=== PATIENT | female | born 1955 | race Caucasian/White ===

== ENCOUNTER 2019-09-19 12:42 | Outpatient (CLI) | payer MEDICARE, OTHER, MEDICAID, SELFPAY ==
--- NOTE | 2019-09-23 17:16 | ONC FU_ITS ---
Dr. Ashby Patient Follow-Up Note Patient: Tiarra Iniguez Unit #: [id number]: 1955 Dicatated By: Pierre Ashby M.D.Date of Visit:Sep 19, 2019 Onc Med Follow-up/Prog Note Chief Complaint: Adenocarcinoma of the endocervix. History of Present Illness: This is a 63 year-old woman with adenocarcinoma of the endocervix, stage IIIB (T1b, N1, M0). She had presented with two year history of abnormal vaginal bleeding and abnormal pap smear. The biopsy revealed an adenocarcinoma of endocervix. The staging CT of the abdomen and pelvis showed thickened endocervical canal and endometrium. She had a right adnexal mass measuring 4.6 cm., radiographically compatible with a dermoid cyst. Her staging chest x-ray was unremarkable. She was taken to OR on 06/08/[address] Camarillo. Intraoperatively, she had grossly abnormal left pelvic node. Complete surgical resection was aborted, and instead bilateral oophorectomy, appendectomy, and lymphadenectomy were performed. Seven out of twelve lymph nodes were involved with metastatic moderately differentiated adenocarcinoma. She had a right ovarian mature cystic teratoma. Her PET/CT on 06/23/2013 showed no evidence of distant metastatic disease. Concurrent pelvic irradiation and chemotherapy with weekly cisplatin was initiated on 07/10/2013. Week 3 was missed, as the patient as the patient underwent the interim low-dose brachytherapy in [place], [place]. She was able to tolerate and completed a total of 6 weekly treatments with cisplatin, last treatment on 08/21/2013. She has no significant side effects. She then underwent a second low dose brachytherapy. Adjuvant consolidation chemotherapy with carboplatin AUC of 5 and paclitaxel 175 mg/m??? began on 09/19/2013, complicated with grade 4 neutropenia without fevers or infection and thrombocytopenia. CT abdomen/pelvis on 10/13/2013 showed with very good response to therapy. Her treatment was further reduced to Carboplatin AUC 4 and Paclitaxel 135 mg/m2 due to persistent thrombocytopenia. She was able to receive a total of 4 cycles of maintenance therapy, cycle 4 on 11/30/2013. The PET/CT on 01/13/2014 was equivocal. There was a new development of small, subcentimeter lymph nodes in the portacaval station, right paratracheal, and right supraclavicular areas with FDG uptake to 4.[address] of the abdomen and pelvis on 05/01/2014 showed no evidence of recurrence. There was a subtle distal colon thickening, thought to be radiation induced. CT of the abdomen and pelvis on 10/16/2014 showed no evidence of recurrent disease. CT of the abdomen and pelvis on 02/06/2015 showed no evidence of metastatic disease, although there was suspected insufficiency fracture in the right sacral wing. Restaging CT of the abdomen and pelvis was performed in February [address] Camarillo reportedly showed no recurrence. INTERIM HISTORY: CT scans of the chest, abdomen, and pelvis on 09/08/2016 showed stable non-enlarged and previously FDG avid right supraclavicular, right paratracheal, subcarinal and right hilar lymph nodes. There were no new areas of adenopathy. Fatty infiltration of the pancreas appeared similar to 10/16/2014. Fatty infiltration of the liver appeared increased from the prior exam. There was no evidence of a neoplastic process of the abdomen or pelvis. Her repeat CT scans on 09/16/2017 showed stable right supraclavicular, right superior paratracheal, subcarinal, and right hilar subcentimeter lymph nodes. These were previously FDG negative by PET. There was no new lymphadenopathy. There was no evidence of disease recurrence/progression in the chest, abdomen, or pelvis. Surveillance CT scans of the chest, abdomen, and pelvis on 09/22/2018 showed a new left upper lobe apical sub-pleural opacity measuring 6 mm. The appearance was nonspecific, but neoplastic process was not excluded. Subcentimeter lymph nodes appeared stable. There was no evidence of recurrent or metastatic disease in the abdomen and pelvis. She continued observation/expectant management. A repeat chest CT on 03/28/2019 showed stable left apical noncalcified pulmonary opacity measuring 6 mm. There were no other suspicious findings. She is seen for a follow up visit. She has been feeling pretty good generally. She says her energy and activity tolerance have improved somewhat with water aerobics. She says she still gets tired by noon. ECOG score is 1. She has good appetite. Her weight is been stable. She has no fever or night sweats. About a week ago she caught a cold. Her cough is better now, but she still has some hoarseness. She has no shortness of breath or chest pain. She is not having as much nausea now. Her diarrhea got better when she stopped taking pantoprazole. She has just a little bit of heartburn. She says her urine has looked darker. She has no other complaints. She says her joints are doing pretty good. She has been wearing compression stockings and that has been helping with her muscle cramps. She also is taking ropinirole at bedtime. She has numbness/tingling in her feet. Medications: Biotin 1 Capsule (of 80979 mcg) Oral daily, Flonase 2 Suspension Nasal daily PRN, Lisinopril 1 (10 mg) Tablet Oral daily, rOPINIRole HCl 1 Tablet (of 0.25 mg) Oral daily Allergies: NKA Review of Systems: Constitutional - She has not been feeling as tired since she has been doing water aerobics. She does light work. Her appetite is good and her weight is stable. She has no fever, night sweats, or hot flashes. ECOG score is 1, ENMT - She has sinus congestion/drainage. No mouth sores. No sore throat or difficulty swallowing. For the past week she has had some hoarseness, Hematologic/Lymphatic - She bruises easily, Respiratory - No shortness of breath. She has cough productive of pale yellow sputum. No pleuritic pain or hemoptysis, Cardiovascular - No angina pain. No palpitations, Gastrointestinal - She has nausea after eating. She has just a little bit of heartburn. Her diarrhea improved when she stopped Protonix. No blood in the stool or black stools, Genitourinary (F) - Recently her urine has looked darker. No dysuria or hematuria. No urinary frequency. No urgency or incontinence, Musculoskeletal - She is not having much joint pain. She says that compression stockings are helping her muscle cramps. She also is taking ropinirole at bedtime, Integumentary - No skin complications, Neurologic - No headache or dizziness.. She has neuropathy in her feet, Psychiatric - She sometimes has trouble getting back to sleep at night after using the bathroom. No anxiety or depression. Vital Signs: Performed on Sep 19, 2019 13:23 Height - 63.00 in Weight - 238.8 lbs (LOW) BSA - 2.09 sq.m BMI - 42.30 (HIGH) Temperature - 98.2 F (LOW) Pulse - 95 /min Respiration - 24 /min BP - 160/80 mm(hg) (HIGH) O2 Sat - 99 % Pain - 0 Physical Examination: Constitutional - She looks good generally, Eyes - Sclerae nonicteric. Conjunctivae clear, ENMT - No lesions noted in the oral cavity, Hematologic/Lymphatic - No cervical, clavicular, or axillary adenopathy, Respiratory - Lungs are clear with good air movement bilaterally, Cardiovascular - Heart rhythm is regular. There is a II/ systolic murmur. There is no gallop or rub noted, Abdomen - Moderately distended. Liver and spleen are not enlarged. There is no abdominal mass or ascites noted and there is no inguinal adenopathy, Extremities - Mild lower extremity edema, worse on the left, Neurologic - No focal neurologic deficits noted. Lab/Imaging: Test performed on Aug 01, 2019 10:55 TSH 3.160 uU/mL Amylase 104 Units/L Glucose 101 mg/dL BUN 18 mg/dL Creatinine 1.13 mg/dL Cr Clearance (Est) 84.44 mL/min BUN/Creatinine Ratio 16 Absolute Value Sodium 141 mmol/L Potassium 5.1 mmol/L Chloride 104 mmol/L CO2 23 mmol/L Calcium 9.4 mg/dL Protein, Total 6.4 g/dL Albumin 3.9 g/dL Globulin 2.5 g/dL A/G Ratio 1.6 Absolute Value Bilirubin, Total 0.2 mg/dL Alkaline Phosphatase 94 IU/L AST (SGOT) 23 IU/L ALT (SGPT) 17 IU/L WBC 5.8 10^9/L RBC 4.27 10^12/L HGB 13.0 g/dL HCT 37.5 % MCV 88 fl MCH 30.4 pg MCHC 34.7 g/dL RDW 12.1 % Platelet Count 261 10^9/L Neutrophils (Gran) 4.2 10^9/L Lymphocytes 0.9 10^9/L Monocytes 0.5 10^9/L Eosinophils 0.1 10^9/L Basophils 0.1 10^9/L Manual Lymphocytes 15 % Manual Monocytes 9 % Manual Eosinophils 2 % Manual Basophils 1 % Impression: 1. Patient with adenocarcinoma of the endocervix, stage IIIB (T1b, N1, M0). Her initial surgery on 06/08/2013 was limited to bilateral oophorectomy, appendectomy, and lymphadenectomy. Pathology metastatic moderately differentiated adenocarcinoma involving 7 out of 12 lymph nodes. The right ovary showed mature cystic teratoma. 2. She then underwent concurrent pelvic radiation with weekly cisplatin chemotherapy, initiated on 07/10/2013 and completed on 08/21/2013. 3. She received 2 doses of low dose brachytherapy, one apparently given during and one given following completion of the chemotherapy. 4. She received adjuvant consolidation chemotherapy with 4 cycles of carboplatin/paclitaxel, completed in November 2013. She has since then been followed on observation/expectant management. During followup she had some equivocal findings on follow-up PET/CT scans, but as of September 2017 there was no evidence of disease progression on her surveillance CT scans. Her followup CT scans of the chest, abdomen and pelvis on 09/22/2018 showed a new left upper lobe apical subpleural parenchymal opacity measuring 6 mm. The appearance was nonspecific, but neoplastic process was not excluded. On her repeat chest CT on 03/28/2019 the left apical nodule appeared stable. There were no other suspicious findings. During follow-up she has continued to have some fatigue, but that has improved somewhat with water aerobics and other exercise. She had been having diarrhea, that improved after she stopped taking pantoprazole and started using probiotics on a regular basis. She continues to have postprandial nausea. Overall, she appears to be doing well clinically with no evidence of recurrence of the cervical cancer. Plan: She remains on observation/expectant management. She will be scheduled for a chest CT scan for follow-up of of the pulmonary nodule. I also will schedule a HIDA scan for evaluation of her postprandial nausea. She will have further evaluation as indicated. Signed By: Pierre Ashby M.D. <<Signature on File>>
== END 2019-09-19 12:43 | disposition home or self-care (01) ==
LOC: ONCMED 12:47
PROVIDERS: Family Provider Family Medicine; Visit Provider Internal Medicine Medical Oncology
DX: Z08 Encounter for follow-up examination after completed treatment for malignant neoplasm (principal); Z85.41 Personal history of malignant neoplasm of cervix uteri; R91.1 Solitary pulmonary nodule; R11.0 Nausea; Z92.21 Personal history of antineoplastic chemotherapy; Z92.3 Personal history of irradiation
CPT/HCPCS: 99214

== ENCOUNTER 2019-10-05 08:46 | Outpatient (CLI) | payer MEDICARE, OTHER, MEDICAID, SELFPAY ==
--- NOTE | 2019-10-05 08:59 | CT_ITS ---
WS: [id number] CT CHEST TECHNIQUE: Noncontrast CT of the chest with coronal and sagittal reformatted images. CLINICAL INFORMATION: CERVICAL CANCER/PULMONARY NODULE COMPARISON: March 28, 2019 DLP: 855.[address] scans at [facility] use at least one of these dose optimization techniques: automat ed exposure control; mA and/or kV adjustment per patient size (includes targeted exams where dose is matched to clinical indication); or iterative reconstruction. FINDINGS: Again seen is the 6 mm noncalcified subpleural opacity in the left lung apex dorsally and medially. T his is unchanged since September 22, 2018. No other suspicious pulmonary parenchymal opacities. Calcified granuloma right upper lobe. Previously described right supraclavicular and right tracheoesophageal groove lymph nodes are unchang ed. Splenic granulomas. Normal adrenal glands. Small splenule. A few calcified paratracheal lymph nod es. Thoracic curve with kyphosis. Ankylosis thoracic spine. No mediastinal or hilar lymphadenopathy. No axillary lymphadenopathy. No other significant changes fr om previous. CT/CT chest wo con [id number] IMPRESSION: 1. Stable 6 mm left apical subpleural noncalcified pulmonary opacity. Recommen d 12 month follow-up. 2. No other suspicious pulmonary parenchymal abnormalities. 3. No mediastinal or hilar lymphadenopathy.
== END 2019-10-05 08:47 | disposition home or self-care (01) ==
LOC: RAD 08:46
PROVIDERS: Family Provider Family Medicine; Visit Provider Internal Medicine Medical Oncology
DX: Z85.41 Personal history of malignant neoplasm of cervix uteri (principal); C53.0 Malignant neoplasm of endocervix; R91.1 Solitary pulmonary nodule
CPT/HCPCS: 71250

== ENCOUNTER 2019-10-24 09:19 | Outpatient (CLI) | payer MEDICARE, OTHER, MEDICAID, SELFPAY ==
--- NOTE | 2019-10-24 09:24 | NM_ITS ---
WS: [id number] NUCLEAR MEDICINE HIDA SCAN WITH GALLBLADDER EJECTION FRACTION HISTORY: ABDOMINAL PAIN/NAUSEA/DIARRHEA COMPARISON: None available. TECHNIQUE: The patient was intravenously injected with 8.4 mCi of TC99m Mebrofenin. Immediate imaging over the right upper quadrant was followed by 5 minute image and additional images for a total of 60 minutes. Normal uptake of radiotracer throughout the liver. Activity identified in the gallbladder at 15 minutes and well distended by 60 minutes. Activity in the proximal small bowel was seen by 50 minutes. Good washout of the radiotracer from the liver by 60 minutes. The patient then drank 8 ounces of Ensure Plus. Ejection fraction at 60 minutes was 93%. Normal GB ej ection fraction is 35-75%. Post fatty meal symptoms: None. NM/NM hepatobiliary w phar* [id number] IMPRESSION: 1. Normal HIDA scan. 2. Normal gallbladder ejection fraction.
== END 2019-10-24 09:20 | disposition home or self-care (01) ==
LOC: NM 09:20
PROVIDERS: Family Provider Family Medicine; PCP Family Medicine; Visit Provider Internal Medicine Medical Oncology
DX: R10.9 Unspecified abdominal pain (principal); R11.0 Nausea; R11.10 Vomiting, unspecified
CPT/HCPCS: 78227; A9537

== ENCOUNTER 2020-03-21 10:52 | Outpatient (CLI) | payer MEDICARE, OTHER, MEDICAID, SELFPAY ==
[2020-03-21 11:29] LABS: Basophils # 0.1 10^3/uL (0.0-0.1); Basophils % 1.8 %; Eosinophils # 0.2 10^3/uL (0.0-0.8); Eosinophils % 3.2 %; Hematocrit 40.9 % (37.0-47.0); Hemoglobin 13.1 g/dL (11.5-15.3); Lymphocytes % 17.1 %; Mean Corpuscular Hemoglobin 29.7 pg (28.0-34.0); Mean Corpuscular Volume 92.7 fL (81-99); Mean Platelet Volume 10.1 fL (7.4-10.4); Monocytes # 0.6 10^3/uL (0.2-0.9); Monocytes % 10.6 %; Neutrophils # 3.78 10^3/uL (1.8-7.7); Neutrophils % 66.8 %; Nucleated Red Blood Cells % 0 %; Platelet Count 282 10^3/cmm (130-400); Red Blood Count 4.41 10^6/uL (4.1-5.3); Red Cell Distribution Width 12.4 % (12.1-15.1); White Blood Count 5.7 10^3/uL (4.0-10.0)
[2020-03-21 11:39] LABS: Alanine Aminotransferase 14 U/L (0-33); Albumin Level 4.1 g/dL (3.5-5.2); Alkaline Phosphatase 110 IU/L (35-105); Anion Gap 12.4 (5-19); Aspartate Amino Transferase 12 U/L (0-32); Blood Urea Nitrogen 20 mg/dL (8-23); Calcium 8.7 mg/dL (8.5-10.5); Carbon Dioxide 26 mmol/L (22-29); Chloride 102 mmol/L (98-107); Globulin 3.3 g/dL (1.3-4.6); Glomerular Filtration Rate 49.7 mL/min (90-130); Glucose 88 mg/dL (65-115); Osmolality Calculated 278 mOsm/kg (285-295); Potassium 4.4 mmol/L (3.5-5.1); Sodium 136 mmol/L (136-145); Total Bilirubin 0.3 mg/dL (0.15-1.2); Total Protein 7.4 g/dL (6.6-8.7)
--- NOTE | 2020-03-24 15:47 | ONC FU_ITS ---
Dr. Ashby Patient Follow-Up Note Patient: Tiarra Iniguez Unit #: [id number]: [id number] Dicatated By: Pierre Ashby M.D.Date of Visit:Mar 21, 2020 Onc Med Follow-up/Prog Note Chief Complaint: Adenocarcinoma of the endocervix. History of Present Illness: This is a 64 year-old woman with adenocarcinoma of the endocervix, stage IIIB (T1b, N1, M0). She had presented with two year history of abnormal vaginal bleeding and abnormal pap smear. The biopsy revealed an adenocarcinoma of endocervix. The staging CT of the abdomen and pelvis showed thickened endocervical canal and endometrium. She had a right adnexal mass measuring 4.6 cm., radiographically compatible with a dermoid cyst. Her staging chest x-ray was unremarkable. She was taken to OR on 06/08/[address] Camarillo. Intraoperatively, she had grossly abnormal left pelvic node. Complete surgical resection was aborted, and instead bilateral oophorectomy, appendectomy, and lymphadenectomy were performed. Seven out of twelve lymph nodes were involved with metastatic moderately differentiated adenocarcinoma. She had a right ovarian mature cystic teratoma. Her PET/CT on 06/23/2013 showed no evidence of distant metastatic disease. Concurrent pelvic irradiation and chemotherapy with weekly cisplatin was initiated on 07/10/2013. Week 3 was missed, as the patient as the patient underwent the interim low-dose brachytherapy in [place], [place]. She was able to tolerate and completed a total of 6 weekly treatments with cisplatin, last treatment on 08/21/2013. She has no significant side effects. She then underwent a second low dose brachytherapy. Adjuvant consolidation chemotherapy with carboplatin AUC of 5 and paclitaxel 175 mg/m??? began on 09/19/2013, complicated with grade 4 neutropenia without fevers or infection and thrombocytopenia. CT abdomen/pelvis on 10/13/2013 showed with very good response to therapy. Her treatment was further reduced to Carboplatin AUC 4 and Paclitaxel 135 mg/m2 due to persistent thrombocytopenia. She was able to receive a total of 4 cycles of maintenance therapy, cycle 4 on 11/30/2013. The PET/CT on 01/13/2014 was equivocal. There was a new development of small, subcentimeter lymph nodes in the portacaval station, right paratracheal, and right supraclavicular areas with FDG uptake to 4.[address] of the abdomen and pelvis on 05/01/2014 showed no evidence of recurrence. There was a subtle distal colon thickening, thought to be radiation induced. CT of the abdomen and pelvis on 10/16/2014 showed no evidence of recurrent disease. CT of the abdomen and pelvis on 02/06/2015 showed no evidence of metastatic disease, although there was suspected insufficiency fracture in the right sacral wing. Restaging CT of the abdomen and pelvis was performed in February [address] Camarillo reportedly showed no recurrence. INTERIM HISTORY: CT scans of the chest, abdomen, and pelvis on 09/08/2016 showed stable non-enlarged and previously FDG avid right supraclavicular, right paratracheal, subcarinal and right hilar lymph nodes. There were no new areas of adenopathy. Fatty infiltration of the pancreas appeared similar to 10/16/2014. Fatty infiltration of the liver appeared increased from the prior exam. There was no evidence of a neoplastic process of the abdomen or pelvis. Her repeat CT scans on 09/16/2017 showed stable right supraclavicular, right superior paratracheal, subcarinal, and right hilar subcentimeter lymph nodes. These were previously FDG negative by PET. There was no new lymphadenopathy. There was no evidence of disease recurrence/progression in the chest, abdomen, or pelvis. Surveillance CT scans of the chest, abdomen, and pelvis on 09/22/2018 showed a new left upper lobe apical sub-pleural opacity measuring 6 mm. The appearance was nonspecific, but neoplastic process was not excluded. Subcentimeter lymph nodes appeared stable. There was no evidence of recurrent or metastatic disease in the abdomen and pelvis. A repeat chest CT on 03/28/2019 showed stable left apical noncalcified pulmonary opacity measuring 6 mm. There were no other suspicious findings. She continued observation/expectant management. She is seen for a follow up visit. She has been feeling pretty good generally. She did have improvement in her energy/activity tolerance after she started water aerobics. She still tires by afternoon. ECOG score is 1. She has good appetite. She has no fever or night sweats. She has no shortness of breath, cough, or chest pain. She still occasionally has nausea in the mornings. Her diarrhea improved with omeprazole and probiotic. She still occasionally has urgency with defecation. She has no complaints. She complains that her right shoulder bothers her when she sleeps. She also has muscle cramping in her legs. She continues to have numbness/tingling in her feet. Medications: Biotin 1 Capsule ([place] 83958 mcg) Oral daily, Flonase 2 Suspension Nasal daily PRN, Lisinopril 1 (10 mg) Tablet Oral daily, Omeprazole 1 Capsule (of 20 mg) Capsule Delayed Release Oral daily, Probiotic 1 Capsule Oral daily, rOPINIRole HCl 1 Tablet (of 0.25 mg) Oral daily Allergies: NKA Review of Systems: Constitutional - Her energy has been better with water aerobics. She does tired by afternoon. Appetite is good and weight is stable. No fever, night sweats, or hot flashes. ECOG score is, ENMT - She always has sinus congestion/drainage. No mouth sores. No sore throat or difficulty swallowing, Hematologic/Lymphatic - She bruises easily, Respiratory - No shortness of breath. No cough. No pleuritic pain or hemoptysis, Cardiovascular - No angina pain. No palpitations, Gastrointestinal - She occasionally has nausea in the mornings. No heartburn or acid reflux. Her diarrhea is better, but she still occasionally has urgency with defecation. No blood in the stool or black stools, Genitourinary (F) - No dysuria or hematuria. No urinary frequency. No urgency or incontinence, Musculoskeletal - She has pain in her right shoulder. It bothers her particularly when she is sleeping. She also has muscle cramping in her legs, Integumentary - No skin rash, Neurologic - No headache or dizziness. She still has numbness/tingling in her feet. No other focal neurologic symptoms, Psychiatric - No anxiety or depression. She has difficulty sleeping because of the shoulder pain. Vital Signs: Blood pressure 130/68, pulse 66, respirations 24, temp 98.3 degrees, and oxygen saturation 98%. Weight is 235 pounds. Physical Examination: Constitutional - She looks pretty good generally, Eyes - Sclerae nonicteric. Conjunctivae clear, ENMT - No lesions noted in the oral cavity, Hematologic/Lymphatic - No cervical, clavicular, or axillary adenopathy, Respiratory - Lungs are clear with good air movement bilaterally, Cardiovascular - Heart rhythm is regular. There is a II/ systolic murmur. here is no gallop or rub noted, Abdomen - Moderately distended. Liver and spleen are not enlarged. There is no abdominal mass or ascites noted and there is no inguinal adenopathy, Extremities - No edema. Pedal pulses are palpable bilaterally, Neurologic - No focal neurologic deficits noted. Lab/Imaging: Test performed on Mar 21, 2020 11:18 Sodium 136 mmol/L Potassium 4.4 mmol/L Chloride 102 mmol/L CO2 26 mmol/L Anion Gap 12.4 BUN 20 mg/dL Creatinine 1.1 mg/dL Cr Clearance (Est) 86.0300 mL/min eGFR 49.7 mL/min Glucose 88 mg/dL Calcium 8.7 mg/dL Protein, Total 7.4 g/dL Albumin 4.1 g/dL Globulin 3.3 g/dL Bilirubin, Total 0.3 mg/dL ALT (SGPT) 14 U/L AST (SGOT) 12 U/L Alkaline Phosphatase 110 IU/L WBC 5.7 10 3/uL RBC 4.41 10 6/uL HGB 13.1 g/dL HCT 40.9 % MCV 92.7 fL MCH 29.7 pg MCHC 32.0 g/dL RDW 12.4 % Platelet Count 282 10 3/cmm MPV 10.1 fL Neutrophils 3.78 10 3/uL Lymphocytes 1.0 10 3/uL Monocytes 0.6 10 3/uL Eosinophils 0.2 10 3/uL Basophils 0.1 10 3/uL Neutrophil % 66.8 % Lymphocyte % 17.1 % Monocyte % 10.6 % Eosinophil % 3.2 % Basophils % 1.8 % NRBC % 0 % Impression: 1. Patient with adenocarcinoma of the endocervix, stage IIIB (T1b, N1, M0). Her initial surgery on 06/08/2013 was limited to bilateral oophorectomy, appendectomy, and lymphadenectomy. Pathology metastatic moderately differentiated adenocarcinoma involving 7 out of 12 lymph nodes. The right ovary showed mature cystic teratoma. 2. She then underwent concurrent pelvic radiation with weekly cisplatin chemotherapy, initiated on 07/10/2013 and completed on 08/21/2013. 3. She received 2 doses of low dose brachytherapy, one apparently given during and one given following completion of the chemotherapy. 4. She received adjuvant consolidation chemotherapy with 4 cycles of carboplatin/paclitaxel, completed in November 2013. She has since then been followed on observation/expectant management. During followup she had some equivocal findings on follow-up PET/CT scans, but as of September 2017 there was no evidence of disease progression on her surveillance CT scans. Her followup CT scans of the chest, abdomen and pelvis on 09/22/2018 showed a new left upper lobe apical subpleural parenchymal opacity measuring 6 mm. The appearance was nonspecific, but neoplastic process was not excluded. On her repeat chest CT on 03/28/2019 the left apical nodule appeared stable. There were no other suspicious findings. During follow-up she has continued to have some fatigue, but that has improved somewhat with water aerobics and other exercise. She had been having diarrhea, but that improved after she stopped taking pantoprazole and started using probiotics on a regular basis. Overall, she has been doing well clinically, though she continues to have some fatigue and she also has residual neuropathy in her lower extremities. There has been no evidence of recurrence of the cervical cancer. Plan: She remains on observation/expectant management for the cervical cancer. She will be scheduled for a follow-up visit with a surveillance CT scan in 6 months. In the meantime, I did talk to her about increasing the ropinirole dosage for the leg cramps. She will let me know if she wants to try it. Signed By: Pierre Ashby M.D. <<Signature on File>>
== END 2020-03-21 10:53 | disposition home or self-care (01) ==
LOC: ONCMED 10:58
PROVIDERS: PCP Family Medicine; Visit Provider Internal Medicine Medical Oncology
DX: Z08 Encounter for follow-up examination after completed treatment for malignant neoplasm (principal); Z85.41 Personal history of malignant neoplasm of cervix uteri; G57.93 Unspecified mononeuropathy of bilateral lower limbs; R25.2 Cramp and spasm; Z92.3 Personal history of irradiation; Z90.722 Acquired absence of ovaries, bilateral; Z92.21 Personal history of antineoplastic chemotherapy
CPT/HCPCS: 80053; 85025; G0463

== ENCOUNTER → 2020-04-25 12:39 | Outpatient (BNVA) | payer MEDICARE, OTHER, MEDICAID, SELFPAY | PROVIDERS: PCP Family Medicine; Visit Provider Nurse Practitioner Family | DX: M25.511 Pain in right shoulder (principal); I10 Essential (primary) hypertension | CPT/HCPCS: 73030; 80061; 84443 ==

== ENCOUNTER 2020-05-09 15:41 | Outpatient (CLI) | payer MEDICARE, OTHER, MEDICAID, SELFPAY ==
--- NOTE | 2020-05-09 16:00 | MR_ITS ---
WS: [id number] MRI RIGHT SHOULDER HISTORY: M25.511 Pain in right shoulder COMPARISON: Shoulder radiograph 04/25/2020 TECHNIQUE: Multiplanar sequences of the shoulder joint are submitted. Moderate narrowing of the AC joint with soft tissue hypertrophy and small osteophytes. Small erosions in the distal clavicle and hypertrophic osteophytes extending superior and inferior. Mild osteophyte encroachment upon the supraspinatus muscle. Small amount of fluid in the subacromial and subdeltoid bursa. There is additional small osteophyte from the distal undersurface of the acromion with minimal encroachment upon the tendon. There is a larger osteophyte from the distal inferior clavicle with mo re significant encroachment on the supraspinatus muscle and tendon over the humeral head. No os acrom ion. Insertion site tear of the anterior distal supraspinatus tendon extends over a width of 6 mm. There i s additional mild tendinopathy in the more proximal tendon. There is no retraction of the tendon but there is moderate atrophy without edema. Subscapularis and infraspinatus tendons are intact. There is fraying along the articular surface of the infraspinatus tendon. Biceps tendon is small caliber but in the bicipital groove. Irregularity along the surface of the hum eral head with loss of cartilage. No labral abnormality. MR/MR shoulder RT wo con* [id number] IMPRESSION: 1. Insertion site tear supraspinatus tendon. 2. Moderate atrophy supraspinatus muscle. 3. Moderate AC joint arthropathy. Osteophytes encroach upon the supraspinatus. Largest from the undersurface of the distal clavicle. 4. Articular surface fraying of the infraspinatus tendon. 5. Moderate loss of cartilage surrounding the humeral head.
== END 2020-05-09 15:42 | disposition home or self-care (01) ==
LOC: RADSHAW 15:47
PROVIDERS: PCP Nurse Practitioner Family; Visit Provider Nurse Practitioner Family
DX: M62.511 Muscle wasting and atrophy, not elsewhere classified, right shoulder (principal); M12.811 Other specific arthropathies, not elsewhere classified, right shoulder; M25.711 Osteophyte, right shoulder
CPT/HCPCS: 73221

== ENCOUNTER 2020-07-03 06:00 | Outpatient (RCR) | payer MEDICARE, OTHER, MEDICAID, SELFPAY | END 2020-07-06 23:59 | disposition home or self-care (01) | LOC: TPT 06:00 | PROVIDERS: PCP Nurse Practitioner Family; Referring Provider Orthopaedic Surgery; Visit Provider Orthopaedic Surgery | DX: Z47.89 Encounter for other orthopedic aftercare (principal) | CPT/HCPCS: 97110; 97140; 97161 ==

== ENCOUNTER 2020-07-07 06:00 | Outpatient (RCR) | payer MEDICARE, OTHER, MEDICAID, SELFPAY | END 2020-08-05 23:59 | disposition home or self-care (01) | LOC: TPT 06:00 | PROVIDERS: PCP Nurse Practitioner Family; Referring Provider Orthopaedic Surgery; Visit Provider Orthopaedic Surgery | DX: Z47.89 Encounter for other orthopedic aftercare (principal) | CPT/HCPCS: 97110; 97140 ==

== ENCOUNTER 2020-08-06 06:00 | Outpatient (RCR) | payer MEDICARE, OTHER, MEDICAID, SELFPAY | END 2020-09-05 23:59 | disposition home or self-care (01) | LOC: TPT 06:00 | PROVIDERS: PCP Nurse Practitioner Family; Referring Provider Orthopaedic Surgery; Visit Provider Orthopaedic Surgery | DX: Z47.89 Encounter for other orthopedic aftercare (principal) | CPT/HCPCS: 97110; 97140 ==

== ENCOUNTER 2020-09-06 06:00 | Outpatient (RCR) | payer MEDICARE, OTHER, MEDICAID, SELFPAY | END 2020-10-06 23:59 | disposition home or self-care (01) | LOC: TPT 06:00 | PROVIDERS: PCP Nurse Practitioner Family; Referring Provider Orthopaedic Surgery; Visit Provider Orthopaedic Surgery | DX: Z47.89 Encounter for other orthopedic aftercare (principal) | CPT/HCPCS: 97110; 97140 ==

== ENCOUNTER 2020-09-19 10:14 | Outpatient (CLI) | payer MEDICARE, OTHER, MEDICAID, SELFPAY ==
--- NOTE | 2020-09-19 10:26 | MM_ITS ---
WS: [id number] BILATERAL SCREENING DIGITAL MAMMOGRAM WITH CAD HISTORY: SCREENING COMPARISON: 07/25/2019, 07/08/2018 and 06/25/2017 Bilateral CC and MLO views submitted. Computer aided detection analyzed. Breast composition: There are scattered areas of fibroglandular density. No suspicious masses, microc alcifications or architectural distortion. Asymmetries and calcifications are stable. MM/[id number] IMPRESSION: BI-RADS: 2-Benign FOLLOW UP: 1 Year Follow-up
== END 2020-09-19 10:15 | disposition home or self-care (01) ==
LOC: RADSHAW 10:22
PROVIDERS: PCP Nurse Practitioner Family; Visit Provider Nurse Practitioner Family
DX: Z12.31 Encounter for screening mammogram for malignant neoplasm of breast (principal)
CPT/HCPCS: 77067

== ENCOUNTER 2020-09-20 05:49 | Outpatient (CLI) | payer MEDICARE, OTHER, MEDICAID, SELFPAY ==
[2020-09-20 09:40] LABS: Basophils # 0.1 10^3/uL (0.0-0.1); Basophils % 1.9 %; Eosinophils # 0.2 10^3/uL (0.0-0.8); Eosinophils % 3.1 %; Hematocrit 41.6 % (37.0-47.0); Hemoglobin 13.2 g/dL (11.5-15.3); Lymphocytes % 17.6 %; Mean Corpuscular HGB Conc 31.7 g/dL (30.0-36.0); Mean Corpuscular Hemoglobin 29.5 pg (28.0-34.0); Mean Corpuscular Volume 93.1 fL (81-99); Mean Platelet Volume 9.7 fL (7.4-10.4); Monocytes # 0.6 10^3/uL (0.2-0.9); Monocytes % 10.2 %; Neutrophils # 3.86 10^3/uL (1.8-7.7); Neutrophils % 66.7 %; Nucleated Red Blood Cells % 0 %; Platelet Count 291 10^3/cmm (130-400); Red Blood Count 4.47 10^6/uL (4.1-5.3); Red Cell Distribution Width 12.4 % (12.1-15.1); White Blood Count 5.8 10^3/uL (4.0-10.0)
[2020-09-20 10:22] LABS: 25 Hydroxy Vitamin D 70 ng/mL (30-100); Alanine Aminotransferase 18 U/L (0-33); Albumin Level 3.8 g/dL (3.5-5.2); Alkaline Phosphatase 137 IU/L (35-105); Anion Gap 11.6 (5-19); Aspartate Amino Transferase 17 U/L (0-32); Blood Urea Nitrogen 16 mg/dL (8-23); Calcium 9.4 mg/dL (8.5-10.5); Carbon Dioxide 28 mmol/L (22-29); Chloride 102 mmol/L (98-107); Globulin 3.4 g/dL (1.3-4.6); Glomerular Filtration Rate 62.5 mL/min (90-130); Glucose 117 mg/dL (65-115); Osmolality Calculated 286 mOsm/kg (285-295); Potassium 4.6 mmol/L (3.5-5.1); Sodium 137 mmol/L (136-145); Total Bilirubin 0.2 mg/dL (0.15-1.2); Total Protein 7.2 g/dL (6.6-8.7)
== END 2020-09-20 05:50 | disposition home or self-care (01) ==
LOC: ONCMED 05:52
PROVIDERS: PCP Nurse Practitioner Family; Visit Provider Internal Medicine Medical Oncology
DX: Z85.41 Personal history of malignant neoplasm of cervix uteri (principal); E55.9 Vitamin D deficiency, unspecified
CPT/HCPCS: 36415; 80053; 82306; 85025

== ENCOUNTER 2020-09-20 09:52 | Outpatient (CLI) | payer MEDICARE, OTHER, MEDICAID, SELFPAY ==
--- NOTE | 2020-09-20 10:13 | CT_ITS ---
WS: [id number] CT CHEST TECHNIQUE: Noncontrast CT of the chest with coronal and sagittal reformatted images. CLINICAL INFORMATION: PULMONARY NODULE COMPARISON: CT chest 10/05/2019 and 03/28/2019 DLP: 899.[address] scans at [facility] use at least one of these dose optimization techniques: automat ed exposure control; mA and/or kV adjustment per patient size (includes targeted exams where dose is matched to clinical indication); or iterative reconstruction. FINDINGS: Again seen is a 6 cm noncalcified subpleural opacity in the left lung apex posterior and medially. Th is is unchanged since . No other suspicious pulmonary parenchymal opacities. No acute pulmonary infiltrates. No mediastinal or hilar lymphadenopathy. No axillary lymphadenopathy. Previously described prominent right supraclavicular and right tracheoesophageal groove lymph nodes are unchanged. Calcified peribronchial lymph nodes. Moderate thoracic curve with kyphosis. Ankylosis thoracic spine. CT/CT chest [facility] [id number] IMPRESSION: 1. Stable 6 mm left apical subpleural noncalcified pulmonary opacity. This is s table since 2. No other suspicious pulmonary parenchymal abnormalities. 3. No mediastinal or hilar lymphadenopathy.
== END 2020-09-20 09:53 | disposition home or self-care (01) ==
PROVIDERS: PCP Nurse Practitioner Family; Visit Provider Internal Medicine Medical Oncology
DX: R91.1 Solitary pulmonary nodule (principal)
CPT/HCPCS: 71250

== ENCOUNTER 2020-09-23 05:59 | Outpatient (CLI) | payer MEDICARE, OTHER, MEDICAID, SELFPAY ==
--- NOTE | 2020-09-23 09:18 | ONC FU_ITS ---
Dr. Ashby Patient Follow-Up Note Patient: Tiarra Iniguez Unit #: [id number]: 1955 Dicatated By: Pierre Ashby M.D.Date of Visit:Sep 23, 2020 Onc Med Follow-up/Prog Note Chief Complaint: Adenocarcinoma of the endocervix. History of Present Illness: This is a 65 year-old woman with adenocarcinoma of the endocervix, stage IIIB (T1b, N1, M0). She had presented with two year history of abnormal vaginal bleeding and abnormal pap smear. The biopsy revealed an adenocarcinoma of endocervix. The staging CT of the abdomen and pelvis showed thickened endocervical canal and endometrium. She had a right adnexal mass measuring 4.6 cm., radiographically compatible with a dermoid cyst. Her staging chest x-ray was unremarkable. She was taken to OR on 06/08/[address] Camarillo. Intraoperatively, she had grossly abnormal left pelvic node. Complete surgical resection was aborted, and instead bilateral oophorectomy, appendectomy, and lymphadenectomy were performed. Seven out of twelve lymph nodes were involved with metastatic moderately differentiated adenocarcinoma. She had a right ovarian mature cystic teratoma. Her PET/CT on 06/23/2013 showed no evidence of distant metastatic disease. Concurrent pelvic irradiation and chemotherapy with weekly cisplatin was initiated on 07/10/2013. Week 3 was missed, as the patient as the patient underwent the interim low-dose brachytherapy in [place], [place]. She was able to tolerate and completed a total of 6 weekly treatments with cisplatin, last treatment on 08/21/2013. She has no significant side effects. She then underwent a second low dose brachytherapy. Adjuvant consolidation chemotherapy with carboplatin AUC of 5 and paclitaxel 175 mg/m??? began on 09/19/2013, complicated with grade 4 neutropenia without fevers or infection and thrombocytopenia. CT abdomen/pelvis on 10/13/2013 showed with very good response to therapy. Her treatment was further reduced to Carboplatin AUC 4 and Paclitaxel 135 mg/m2 due to persistent thrombocytopenia. She was able to receive a total of 4 cycles of maintenance therapy, cycle 4 on 11/30/2013. The PET/CT on 01/13/2014 was equivocal. There was a new development of small, subcentimeter lymph nodes in the portacaval station, right paratracheal, and right supraclavicular areas with FDG uptake to 4.[address] of the abdomen and pelvis on 05/01/2014 showed no evidence of recurrence. There was a subtle distal colon thickening, thought to be radiation induced. CT of the abdomen and pelvis on 10/16/2014 showed no evidence of recurrent disease. CT of the abdomen and pelvis on 02/06/2015 showed no evidence of metastatic disease, although there was suspected insufficiency fracture in the right sacral wing. Restaging CT of the abdomen and pelvis was performed in February [address] Camarillo reportedly showed no recurrence. INTERIM HISTORY: CT scans of the chest, abdomen, and pelvis on 09/08/2016 showed stable non-enlarged and previously FDG avid right supraclavicular, right paratracheal, subcarinal and right hilar lymph nodes. There were no new areas of adenopathy. Fatty infiltration of the pancreas appeared similar to 10/16/2014. Fatty infiltration of the liver appeared increased from the prior exam. There was no evidence of a neoplastic process of the abdomen or pelvis. Her repeat CT scans on 09/16/2017 showed stable right supraclavicular, right superior paratracheal, subcarinal, and right hilar subcentimeter lymph nodes. These were previously FDG negative by PET. There was no new lymphadenopathy. There was no evidence of disease recurrence/progression in the chest, abdomen, or pelvis. Surveillance CT scans of the chest, abdomen, and pelvis on 09/22/2018 showed a new left upper lobe apical sub-pleural opacity measuring 6 mm. The appearance was nonspecific, but neoplastic process was not excluded. Subcentimeter lymph nodes appeared stable. There was no evidence of recurrent or metastatic disease in the abdomen and pelvis. A repeat chest CT on 03/28/2019 showed stable left apical noncalcified pulmonary opacity measuring 6 mm. There were no other suspicious findings. She continued observation/expectant management. In June 2020 she underwent right rotator cuff repair in [place]. She had no complications with the surgery. Her surveillance chest CT on 09/20/2020 showed 6 mm left apical subpleural noncalcified nodule which appeared stable dating back to September 2018. There were no other suspicious findings. She is seen for a follow up visit. She had decline in her activity tolerance following her surgery in June, but that is improving now. She has been able to restart her water aerobics, which has helped her energy. Her appetite has been okay other than her stomach tends to feel queasy when she first wakes up in the morning. She does not have fever, night sweats, or hot flashes. She has some sinus drainage and she occasionally has cough with it. She has no shortness of breath or chest pain. Her acid reflux is adequately managed with omeprazole. Since radiation her bowels have tended to go from one extreme to the other, but that has improved since she started taking probiotic. She has no complaints. She also complains that her knees hurt when she first gets up in the morning, but she has no other joint or bone pain. She still has some numbness in her feet following the chemotherapy. Medications: Biotin 1 Capsule ([place] [address]41 mcg) Oral daily, Flonase 2 Suspension Nasal daily PRN, Lisinopril 1 (10 mg) Tablet Oral daily, Omeprazole 1 Capsule (of 20 mg) Capsule Delayed Release Oral daily, Probiotic 1 Capsule Oral daily, rOPINIRole HCl 1 Tablet (of 0.25 mg) Oral daily Allergies: NKA Vital Signs: Performed on Sep 23, 2020 08:42 Height - 63.00 in Weight - 230.8 lbs (LOW) BSA - 2.06 sq.m BMI - 40.88 (HIGH) Temperature - 98.5 F Pulse - 108 /min (HIGH) Respiration - 22 /min BP - 133/81 mm(hg) O2 Sat - 98 % Pain - 0 Fatigue - 3 Physical Examination: Constitutional - She looks pretty good generally, Eyes - Sclerae nonicteric. Conjunctivae clear, ENMT - No lesions noted in the oral cavity, Hematologic/Lymphatic - No cervical, clavicular, or axillary adenopathy, Respiratory - Lungs are clear with good air movement bilaterally, Cardiovascular - Heart rhythm is regular. There is a II/ systolic murmur. There is no gallop or rub noted, Abdomen - Mildly distended but soft. Liver and spleen are not enlarged. There is no abdominal mass or ascites noted and there is no inguinal adenopathy, Extremities - No edema, Neurologic - No focal neurologic deficits noted. Lab/Imaging: Test performed on Sep 20, 2020 09:30 Sodium 137 mmol/L Vitamin D (25-Hydroxy), Total 70 ng/mL Potassium 4.6 mmol/L Chloride 102 mmol/L CO2 28 mmol/L Anion Gap 11.6 BUN 16 mg/dL Creatinine 0.9 mg/dL Cr Clearance (Est) 103.7200 mL/min eGFR 62.5 mL/min Glucose 117 mg/dL Osmolality - Calculated 286 mOsm/kg Calcium 9.4 mg/dL Protein, Total 7.2 g/dL Albumin 3.8 g/dL Globulin 3.4 g/dL Bilirubin, Total 0.2 mg/dL ALT (SGPT) 18 U/L AST (SGOT) 17 U/L Alkaline Phosphatase 137 IU/L WBC 5.8 10 3/uL RBC 4.47 10 6/uL HGB 13.2 g/dL HCT 41.6 % MCV 93.1 fL MCH 29.5 pg MCHC 31.7 g/dL RDW 12.4 % Platelet Count 291 10 3/cmm MPV 9.7 fL Neutrophils 3.86 10 3/uL Lymphocytes 1.0 10 3/uL Monocytes 0.6 10 3/uL Eosinophils 0.2 10 3/uL Basophils 0.1 10 3/uL Neutrophil % 66.7 % Lymphocyte % 17.6 % Monocyte % 10.2 % Eosinophil % 3.1 % Basophils % 1.9 % NRBC % 0 % Problem List: 1. Adenocarcinoma of the endocervix, stage IIIB (T1b, N1, M0). Her initial surgery on 06/08/2013 was limited to bilateral oophorectomy, appendectomy, and lymphadenectomy. Pathology metastatic moderately differentiated adenocarcinoma involving 7 out of 12 lymph nodes. The right ovary showed mature cystic teratoma. 2. She then underwent concurrent pelvic radiation with weekly cisplatin chemotherapy, initiated on 07/10/2013 and completed on 08/21/2013. 3. She received 2 doses of low dose brachytherapy, one apparently given during and one given following completion of the chemotherapy. 4. She received adjuvant consolidation chemotherapy with 4 cycles of carboplatin/paclitaxel, completed in November 2013. She has since then been followed on observation/expectant management. Problems Addressed with this Encounter and Plan: 1. Adenocarcinoma of the endocervix, stage IIIB (T1b, N1, M0). Her initial surgery on 06/08/2013 was limited to bilateral oophorectomy, appendectomy, and lymphadenectomy. Pathology metastatic moderately differentiated adenocarcinoma involving 7 out of 12 lymph nodes. The right ovary showed mature cystic teratoma. Her postoperative therapy included pelvic radiation concurrently with weekly cisplatin chemotherapy, 2 doses of low-dose brachytherapy, and consolidation chemotherapy with 4 cycles of carboplatin/paclitaxel. She completed treatment in November 2013. Thus far during follow-up there has been no evidence of recurrence. She appears to be doing well clinically. She has yearly follow-up with the [facility] oncologist in [place] and she also has regular follow-up care with her primary care provider. I will just see her again as needed. 2. During follow-up she was found on CT to have a 6 mm left upper lobe noncalcified pulmonary nodule. This has been stable by CT scan for 2 years, and she should not require any further surveillance CT scans on a routine basis. Signed By: Pierre Ashby M.D. <<Signature on File>>
== END 2020-09-23 06:00 | disposition home or self-care (01) ==
LOC: ONCMED 06:03
PROVIDERS: PCP Nurse Practitioner Family; Visit Provider Internal Medicine Medical Oncology
DX: Z08 Encounter for follow-up examination after completed treatment for malignant neoplasm (principal); Z85.41 Personal history of malignant neoplasm of cervix uteri; R91.1 Solitary pulmonary nodule; Z92.21 Personal history of antineoplastic chemotherapy; Z90.710 Acquired absence of both cervix and uterus; Z90.722 Acquired absence of ovaries, bilateral; Z92.3 Personal history of irradiation
CPT/HCPCS: G0463

== ENCOUNTER 2020-10-07 06:00 | Outpatient (RCR) | payer MEDICARE, OTHER, MEDICAID, SELFPAY | END 2020-10-17 23:00 | disposition home or self-care (01) | LOC: TPT 06:00 | PROVIDERS: PCP Nurse Practitioner Family; Referring Provider Orthopaedic Surgery; Visit Provider Orthopaedic Surgery | DX: Z47.89 Encounter for other orthopedic aftercare (principal) | CPT/HCPCS: 97110; 97140 ==

== ENCOUNTER → 2020-12-12 10:42 | Outpatient (BNVA) | payer MEDICARE, OTHER, MEDICAID, SELFPAY | PROVIDERS: PCP Nurse Practitioner Family; Visit Provider Nurse Practitioner Family | DX: I10 Essential (primary) hypertension (principal); K21.9 Gastro-esophageal reflux disease without esophagitis; G25.81 Restless legs syndrome; R00.2 Palpitations; Z68.41 Body mass index [BMI] 40.0-44.9, adult | CPT/HCPCS: 80053; 80061; 83735; 84443; 85025 ==

== ENCOUNTER → 2021-02-06 10:18 | Outpatient (BNVA) | payer MEDICARE, OTHER, MEDICAID, SELFPAY | PROVIDERS: PCP Nurse Practitioner Family; Visit Provider Nurse Practitioner Family | DX: R19.7 Diarrhea, unspecified (principal) | CPT/HCPCS: 83630; 87338; 87493; 87506 ==

== ENCOUNTER → 2021-02-26 15:35 | Outpatient (BNVA) | payer MEDICARE, OTHER, MEDICAID, SELFPAY | PROVIDERS: PCP Nurse Practitioner Family; Referring Provider Nurse Practitioner Family; Visit Provider Internal Medicine | DX: R19.7 Diarrhea, unspecified (principal); Z01.812 Encounter for preprocedural laboratory examination; K21.9 Gastro-esophageal reflux disease without esophagitis; Z20.822 Contact with and (suspected) exposure to COVID-19 | CPT/HCPCS: 82784; 83516; 87635 ==

== ENCOUNTER 2021-03-03 08:28 | Day surgery (SDC) | payer MEDICARE, OTHER, MEDICAID, SELFPAY ==
[2021-02-27 14:37] VITALS: BMI 41.1
--- NOTE | 2021-03-03 08:47 | ANES.PREANE2 ---
Pre-Anesthetic Assessment Pre-Anesthetic Assessment: Height/Weight: Height 1.6 m Weight 105.233 kg Preop Diagnosis: Chronic diarrhea Proposed Procedure: Operation Date: 03/03/21 09:45 Proposed Procedures p EGD 34954 R19.7(Not Applicable) - Barry Lopez MD s Colonoscopy 75438 R19.7(Not Applicable) - Barry Lopez MD Was Beta Mati taken within 24 hours: N/A Was Clonidine taken within 24 hours: N/A Social: Social History: No alcohol and No tobacco Exam: Pre-Anes Outpt Exam: alert, oriented x 3, clear to auscultation bilaterally and regular rate & rhythm Airway: Submandibular: WNL Cervical ROM: WNL MP: 2 Dentition: Full CV/HEM: CV/HEM: Arrythmia and HTN GI: GI: GERD Metabolic: Metabolic: Morbid obesity Anesthetic Plan: ASA status: 3 Anesthesia: MAC Risk of > 500 ml blood loss (7ml/kg in children): No PFSH Anesthesia PFSH: Social History Smoking and tobacco status: never smoked Second hand smoke exposure: No Alcohol intake: never Lives independently: Yes Household members: spouse Marital status: Current occupational status: retired History of recent travel: No Current gender identity: Female Data Anesthesia Cardiac Studies: No Data to Display
[2021-03-03 09:11] VITALS: BP 167/103; PULSE 98; RESP 18; TEMP 36.5; O2SAT 97
--- NOTE | 2021-03-03 09:28 | P.HP_ITS ---
Same Day Surgery H&P Indication for Procedure/HPI DATE OF PROCEDURE: March 03, 2021 CHIEF COMPLAINT/INDICATIONFOR SURGICAL PROCEDURE: Diarrhea PREOP DIAGNOSIS: Chronic diarrhea PLANNED PROCEDRUE: Operation Date: 03/03/21 09:45 Proposed Procedures p EGD 46540 R19.7(Not Applicable) - Barry Lopez MD s Colonoscopy 67199 R19.7(Not Applicable) - Barry Lopez MD Medications/Allergies* Home Medications Medication Instructions Recorded Confirmed Type biotin 10,000 mcg capsule 10,000 mcg PO BID cap 04/25/20 03/03/21 History lactobacillus combination no.9 4 4,000 mmu cells PO DAILY 04/25/20 02/27/21 History billion cell capsule cyclobenzaprine 10 mg PO TID PRN 02/27/21 03/03/21 History fluticasone propionate [Flonase 2 spray INTRANASAL DAILY PRN 02/27/21 03/03/21 History Allergy Relief] Allergies/Adverse Reactions Allergy/AdvReac Type Severity Reaction Status Date / Time No Known Allergies Allergy Verified 03/03/21 09:14 Pertinent History/Comorbid Conditions* Social History Smoking and tobacco status: never smoked Second hand smoke exposure: No Alcohol intake: never Lives independently: Yes Household members: spouse Marital status: Current occupational status: retired History of recent travel: No Current gender identity: Female Pertinent Exam Findings alert, oriented x 3, clear to auscultation bilaterally, regular rate & rhythm, operative site marked and procedure specific exam findings Recommendations Surgery/Procedure today Coding Level of Care Code Acute Driver Wheelchair for Chata Garland
[2021-03-03] MEDS: sodium chloride 0.9% 1,000 ML 30 ML IV (09:38)
[2021-03-03 10:27] VITALS: BP 119/84; PULSE 84; RESP 18; TEMP 36.1; O2SAT 98
[2021-03-03 10:33] VITALS: BP 128/73; PULSE 76; RESP 18; O2SAT 100
--- NOTE | 2021-03-03 15:27 | ANE.PACU2 ---
Inpatient post-anesthesia follow up: Airway intact: Yes Vital signs: Temperature 97 F Pulse Rate 76 Respiratory Rate 18 Blood Pressure 128/73 Pulse Oximetry 100 Oxygen Delivery Me thod Room Air Oxygen Flow Rate 3 Fraction of Inspir ed Oxygen Hydration adequate: Yes Nausea and vomiting: No Pain level: 1 Mental status: Baseline
== END 2021-03-03 10:51 | disposition home or self-care (01) ==
PROVIDERS: PCP Nurse Practitioner Family; Visit Provider Internal Medicine
PROC: 0DJ08ZZ Inspection of Upper Intestinal Tract, Via Natural or Artificial Opening Endoscopic (ICD-10-PCS; CPT 43235; principal; 2021-03-03 09:45)
PROC: 0DJD8ZZ Inspection of Lower Intestinal Tract, Via Natural or Artificial Opening Endoscopic (ICD-10-PCS; CPT 45378; 2021-03-03 09:45)
DX: K52.9 Noninfective gastroenteritis and colitis, unspecified (principal); I10 Essential (primary) hypertension; K21.9 Gastro-esophageal reflux disease without esophagitis; E66.01 Morbid (severe) obesity due to excess calories; Z68.41 Body mass index [BMI] 40.0-44.9, adult
CPT/HCPCS: 43235; 45378; 96360; J2704; J7030

== ENCOUNTER → 2021-05-14 13:45 | Outpatient (BNVA) | payer MEDICARE, OTHER, MEDICAID, SELFPAY | PROVIDERS: PCP Nurse Practitioner Family; Visit Provider Nurse Practitioner Family | DX: R30.0 Dysuria (principal) | CPT/HCPCS: 81000 ==

== ENCOUNTER → 2021-09-25 10:50 | Outpatient (BNVA) | payer MEDICARE, OTHER, MEDICAID, SELFPAY | PROVIDERS: PCP Nurse Practitioner Family; Visit Provider Nurse Practitioner Family | DX: R00.2 Palpitations (principal); I10 Essential (primary) hypertension; R53.83 Other fatigue | CPT/HCPCS: 80053; 80061; 82306; 82607; 83735; 84439; 84443; 85025; 86376 ==

== ENCOUNTER 2021-09-26 09:39 | Outpatient (CLI) | payer MEDICARE, OTHER, MEDICAID, SELFPAY ==
--- NOTE | 2021-09-26 09:49 | MM_ITS ---
WS: [id number] Exam: [id number] Date/Time of Exam: 09/26/2021 9:59 AM Reason For Exam: SCREENING VIEWS: MLO and CC views both breasts. Comparison made with prior exam of 06/25/2017, 07/08/2018 and 07/25/2019 as well as 09/19/2020. Findings: There was no sign of mass, architectural distortion or suspicious calcification in either breast. Sc attered fibroglandular densities MM/[id number] Impression: BI-RADS: 2-Benign FOLLOW-UP: 1 Year Follow-up This mammogram was also analyzed by the Computer Aided Detection System [employer].
== END 2021-09-26 09:40 | disposition home or self-care (01) ==
LOC: RADSHAW 09:44
PROVIDERS: PCP Nurse Practitioner Family; Visit Provider Nurse Practitioner Family
DX: Z12.31 Encounter for screening mammogram for malignant neoplasm of breast (principal)
CPT/HCPCS: 77067

== ENCOUNTER → 2022-03-11 09:17 | Outpatient (BNVA) | payer MEDICARE, OTHER, MEDICAID, SELFPAY | PROVIDERS: PCP Nurse Practitioner Family; Visit Provider Nurse Practitioner Family | DX: R00.2 Palpitations (principal) | CPT/HCPCS: 99213 ==

== ENCOUNTER → 2022-05-06 10:38 | Outpatient (BNVA) | payer MEDICARE, OTHER, MEDICAID, SELFPAY | PROVIDERS: PCP Nurse Practitioner Family; Visit Provider Nurse Practitioner Family | DX: I10 Essential (primary) hypertension (principal); E55.9 Vitamin D deficiency, unspecified; R19.7 Diarrhea, unspecified; R11.0 Nausea; K22.70 Barrett's esophagus without dysplasia; F32.A Depression, unspecified; K21.9 Gastro-esophageal reflux disease without esophagitis; J30.9 Allergic rhinitis, unspecified; G25.81 Restless legs syndrome; R00.2 Palpitations; R10.11 Right upper quadrant pain | CPT/HCPCS: 80053; 80061; 82306; 84443; 85025 ==

== ENCOUNTER → 2022-05-07 10:46 | Outpatient (BNVA) | payer MEDICARE, OTHER, MEDICAID, SELFPAY | PROVIDERS: PCP Nurse Practitioner Family; Visit Provider Nurse Practitioner Family | DX: R11.0 Nausea (principal); R19.7 Diarrhea, unspecified | CPT/HCPCS: 87338; 87493; 87506 ==

== ENCOUNTER 2022-06-11 19:07 | Emergency (ER) | payer MEDICARE, OTHER, MEDICAID, SELFPAY ==
[2022-06-11 19:20] VITALS: BP 189/81; PULSE 79; RESP 18; TEMP 36.8; O2SAT 96; BMI 41.3
--- NOTE | 2022-06-11 19:41 | XRR_ITS ---
PROCEDURE INFORMATION: Exam: XR Left Hand Exam date and time: 06/11/2022 8:25 PM Age: 67 years old Clinical indication: Pain; Hand; Left; Additional info: Fall TECHNIQUE: Imaging protocol: Radiologic exam of the Left hand. Views: 3 or more views. COMPARISON: No relevant prior studies available. FINDINGS: Bones/joints: Alignment is normal. No acute fracture. Soft tissues: Visible soft tissues are unremarkable. XR/XR hand LT min 3V* [id number] IMPRESSION: No acute fracture.
--- NOTE | 2022-06-11 20:46 | ED_ITS ---
HPI - Fall General: Chief Complaint: Fall Stated Complaint: fall/ Left hand injury and head lac Time Seen by Provider: 06/11/22 20:28 History of Present Illness: Patient is in for hand pain and laceration status post fall. Patient reports that she tripped while on her porch and fell. She reports she had just swept the porch. She reports that she fell onto her left outstretched hand. Her glasses cut just into her left eyebrow. She reports that she washed the wound out with peroxide a couple of times and bled a lot. Denies that she had any loss of consciousness. She denies any major headache, nausea, change in vision. Orts that really her only major complaint is her left palmar surface thumb. She reports that she has not had tetanus in over 10 years Associated symptoms-after fall: Denies chest pain, difficulty walking or headache(s) Review of Systems Const: Denies: fever(s) or chills Card: Denies: chest pain or palpitations Resp: Denies: dyspnea Skin/Breast: Reports: other (Laceration left side eyebrow approximately 1-1/2 cm) Neuro: Denies: headache(s), numbness in extremities, weakness in extremities, sensory changes, lack of coordination or difficulty walking PFS ED PFSH: Medical History History of cervical cancer Neuropathy Surgical History S/P biopsy of cervix S/P eye surgery S/P shoulder surgery Social History Smoking and tobacco status: never smoked Second hand smoke exposure: No Alcohol intake: never Caregiver/support person: Yes Lives independently: Yes Household members: spouse Marital status: Current occupational status: retired History of recent travel: No Current gender identity: Female Special ramos needs: No Agree to transfusion: Yes Physical Exam Const: COMMON NORMALS: no acute distress, patient oriented x3 and alert Eye: COMMON NORMALS: Equal, round and reactive pupils present and EOMs intact bilaterally PUPIL: Yes Equal, round and reactive pupils present Resp: COMMON NORMALS: normal respiratory effort, No use of accessory muscles and clear to auscultation bilaterally AUSCULTATION: clear to auscultation bilaterally Cardio: COMMON NORMALS: regular rate, regular rhythm, S1 normal heart sound present and S2 normal heart sound present RATE: regular rate RHYTHM: regular rhythm HEART SOUNDS: S1 normal heart sound present and S2 normal heart sound present Extremity: NARRATIVE EXTREMITY EXAM: There is some bruising to the palmar surface left thumb. There is some tenderness to palpation. Patient has limited mobility due to pain. She is able to do thumb to index finger thumb to middle finger but cannot do thumb to fourth or fifth finger. color and sensation are within normal limits. Pulses palpable radial and ulnar Neuro: COMMON NORMALS: patient oriented x3, CN's II-XII intact bilaterally, moves all extremities and no focal motor deficits SENSORIUM/ORIENTATION: Yes alert Procedures Laceration Laceration 1: Site: face (Eyebrow) Side (If applicable): left Size (cm): 1.5 Depth: simple, single layer Local Anesthetic: lidocaine 1% Amount of anesthesia used (mL): 1 Pre-repair: wound explored and irrigated extensively Skin layer closed with: other (5-0 Ethilon) Size (cm): 5-0 Number of sutures: 5 Technique: simple, interrupted Course Vital Signs: Vital signs: Vital Signs Temperature 98.2 F 06/11/22 19:20 Pulse Rate 79 06/11/22 19:20 Respiratory Rate 18 06/11/22 19:20 Blood Pressure 189/81 06/11/22 19:20 Pulse Oximetry 96 06/11/22 19:20 Oxygen Delivery Me thod 06/11/22 19:20 MDM - Fall Medical Decision Making Patient is in today status post fall. She is over 63 we had a lengthy discussion about head injuries and the risk of bleed. At this point patient did not have loss of consciousness and does not have any neurologic changes. She does not want to have a CT of the head. We discussed monitoring for neurologic changes even up to a couple weeks afterwards as there can be development of slow subdural hematomas. Patient does have a small laceration to her left eyebrow which is repaired with sutures. Left hand x-ray negative for fracture. Advised her of conservative treatment at home including ice, rest, elevation. Offered Maikel wrap today just for extra support and she declines at this time. Tetanus vaccine administered. Follow-up in 5 days for suture removal. Follow-up with PCP as needed. Return to the ER sooner as needed for new or worsening symptoms. Lab Data Radiology Impressions Hand X-Ray 06/11/22 19:41 IMPRESSION: No acute fracture. Discharge Plan Discharge Patient Disposition: Home Clinical Impression: Laceration of head Contusion of hand Qualifiers: Encounter type: initial encounter Laterality: left Qualified Code(s): S60.222A - Contusion of left hand, initial encounter Condition: Stable Prescriptions: No Action zinc 50 mg tablet 50 mg PO DAILY aspirin [Adult Low Dose Aspirin] 81 mg tablet,delayed release (DR/EC) 81 mg PO DAILY Senior Probiotic 15 billion cell capsule 15,000 mmu cells PO DAILY Rx Instructions: administer with a meal ropinirole 0.5 mg tablet See Rx Instructions .ROUTE .COMPLEX Qty: 180 1RF Dose Instruction: Take 1 tablet by mouth twice daily Rx Instructions: Take 1 tablet by mouth twice daily pantoprazole 40 mg tablet,delayed release (DR/EC) See Rx Instructions .ROUTE .COMPLEX Qty: 90 1RF Dose Instruction: TAKE 1 TABLET BY MOUTH ONCE DAILY IN THE MORNING . APPOINTMENT REQUIRED FOR FUTURE REFILLS Rx Instructions: TAKE 1 TABLET BY MOUTH ONCE DAILY IN THE MORNING . APPOINTMENT REQUIRED FOR FUTURE REFILLS lisinopril 10 mg tablet See Rx Instructions .ROUTE .COMPLEX Qty: 90 1RF Dose Instruction: Take 1 tablet by mouth once daily Rx Instructions: Take 1 tablet by mouth once daily diphenoxylate-atropine [Lomotil] 2.5-0.025 mg tablet 1 tab PO TID PRN (Reason: diarrhea) Qty: 30 0RF cholecalciferol (vitamin D3) 1,250 mcg (50,000 unit) capsule 50,000 unit PO .weekly Qty: 4 2RF metoprolol succinate 25 mg tablet extended release 24 hr 25 mg PO DAILY Qty: 90 1RF fluticasone propionate [Flonase Allergy Relief] 50 mcg/actuation spray,suspension 2 spray INTRANASAL DAILY PRN (Reason: Allergy Symptoms) Rx Instructions: administer into each nostril Discharge Orders: Discharge ED (Routine); Ordered 06/11/22 Ordered By: Salud Bass Referrals: Vera Garza FNP [Primary Care Provider] - Discharge Diet: Usual diet Discharge Activity: Resume usual activity Patient Instructions: Contusion, Care For Your Stitches (ED) Activity Restrictions/Additional Instructions: Rest, ice, elevate your hand to help with pain and swelling. You may use Tylenol and Motrin alternating for pain and comfort. Keep your sutures clean and dry. Follow-up in 5 days for suture removal. Follow-up with your PCP as needed. Return to the ER sooner as needed for new or worsening symptoms. Coding Level of Care Code ED Optical Instrument Inspector for Chata Garland Exam Detailed
--- NOTE | 2022-06-11 20:50 | PC.NURSE ---
Pt has small lac above left eye. Pt has pain and swelling of left thumb 5/10. Mild swelling present. Sensation normal but movement is limited.
[2022-06-11] MEDS: lidocaine 1% INJ 20 mL MDV (mL) INTRADERMA (21:18)
[2022-06-11] MEDS: tetanus-dipt-pertussis 0.5 mL SDV IM (21:26)
[2022-06-11 22:16] VITALS: BP 164/79; PULSE 66; RESP 16; TEMP 36.9; O2SAT 97
== END 2022-06-11 22:19 | disposition home or self-care (01) ==
PROVIDERS: Emergency Provider Nurse Practitioner Family; PCP Nurse Practitioner Family
DX: S60.222A Contusion of left hand, initial encounter (principal); S01.112A Laceration without foreign body of left eyelid and periocular area, initial encounter; Z79.82 Long term (current) use of aspirin; Z85.41 Personal history of malignant neoplasm of cervix uteri; W01.0XXA Fall on same level from slipping, tripping and stumbling without subsequent striking against object, initial encounter; Z23 Encounter for immunization
CPT/HCPCS: 12011; 73130; 90471; 90715; 99283

== ENCOUNTER 2022-06-22 06:51 | Outpatient (CLI) | payer MEDICARE, OTHER, MEDICAID, SELFPAY ==
--- NOTE | 2022-06-22 07:15 | US_ITS ---
WS: [email or web address] Complete ABDOMINAL ULTRASOUND HISTORY: R11.0 - Nausea COMPARISON: 08/16/2019 Liver: 15.1 cm in length. Top normal size liver. Mild coarsened echotexture with hepatic steatosis. N o mass or bile duct dilatation. Portal Vein: Normal hepatopetal flow with monophasic waveform. Gallbladder: Normally distended with no gallstones, wall thickening or pericholecystic fluid. Gallbladder wall thickness: 0.2 cm. Pancreas: Not well visualized. Tail is obscured. CBD: 0.3 cm. Right kidney: 8.1 cm x 5.5 cm x 4.2 cm. Very mild renal atrophy. No cortical thinning. No obstructio n or mass. Left kidney: 8.7 cm x 5.9 cm x 5.7 cm. Mild atrophy with no hydronephrosis or mass. No cortical thin rei. Spleen: Poorly visualized spleen appears normal size. Abdominal aorta and IVC are within normal limits. No ascites. US/US abdomen complete* [id number] IMPRESSION: 1. Normal gallbladder. 2. Hepatic steatosis. Liver is measuring just slightly smaller than on the betty or examination which could be technical. 3. No hydronephrosis. Very mild renal atrophy.
== END 2022-06-22 06:52 | disposition home or self-care (01) ==
LOC: RAD 06:53
PROVIDERS: PCP Nurse Practitioner Family; Visit Provider Nurse Practitioner Family
DX: R11.0 Nausea (principal); K76.0 Fatty (change of) liver, not elsewhere classified; N26.1 Atrophy of kidney (terminal)
CPT/HCPCS: 76700

== ENCOUNTER → 2022-06-23 09:53 | Outpatient (BNVA) | payer MEDICARE, OTHER, MEDICAID, SELFPAY | PROVIDERS: PCP Nurse Practitioner Family; Visit Provider Nurse Practitioner Family | DX: E55.9 Vitamin D deficiency, unspecified (principal) | CPT/HCPCS: 82306 ==

== ENCOUNTER 2022-10-01 10:07 | Outpatient (CLI) | payer MEDICARE, OTHER, MEDICAID, SELFPAY ==
--- NOTE | 2022-10-01 10:30 | MM_ITS ---
WS: [email or web address] VIEWS: MLO and CC views both breasts. 3D digital tomosynthesis is also included in this exam. Comparison made with prior exam of 06/24/2016, 06/25/2017, 07/08/2018, 07/25/2019, 09/19/2020, 2.. Findings: There was no sign of mass, architectural distortion or suspicious calcification in either breast. Sc attered fibroglandular densities MM/[place] [id number] Impression: BI-RADS: 2-Benign FOLLOW-UP: 1 Year Follow-up This mammogram was also analyzed by the Computer Aided Detection System R2 Imag e Loss Prevention Leader.
== END 2022-10-01 10:08 | disposition home or self-care (01) ==
PROVIDERS: PCP Nurse Practitioner Family; Visit Provider Nurse Practitioner Family
DX: Z12.31 Encounter for screening mammogram for malignant neoplasm of breast (principal)
CPT/HCPCS: 77063; 77067

== ENCOUNTER → 2022-10-16 10:05 | Outpatient (BNVA) | payer MEDICARE, OTHER, MEDICAID, SELFPAY | PROVIDERS: PCP Nurse Practitioner Family; Visit Provider Internal Medicine Cardiovascular Disease | DX: R06.02 Shortness of breath (principal); I10 Essential (primary) hypertension; R53.83 Other fatigue; F32.A Depression, unspecified; R00.2 Palpitations | CPT/HCPCS: 99213 ==

== ENCOUNTER 2022-11-10 13:59 | Outpatient (CLI) | payer MEDICARE, OTHER, MEDICAID, SELFPAY ==
--- NOTE | 2022-11-10 14:30 | USCV_ITS ---
Tiarra Iniguez Age: 67 Gender: F : 1955 Exam Date: 11/10/2022 14:29 Ordering Phys: Reyes Davis MD ([email or web address]) Technologist: DB [place] [facility] [place]: SHORTNESS OF BREATH,PALPITATIONS BP: 132 / 84 HR: 71 Rhythm: Sinus Technical Quality: Adequate MEASUREMENTS (Male / Female) Normal Values 2D ECHO LVOT Diameter 2.0 cm LV Ejection Fraction MOD 2C 70.8 % LV Ejection Fraction 2C AL 71.2 % LA Diameter 2.9 cm LA Width 2.5 cm LA Height 4.7 cm RA Width 2.6 cm RA Height 4.6 cm Aorta at Sinotubular Diameter 2.4 cm IVC Diameter 1.1 cm M-MODE Aortic Annulus Diameter 3.1 cm LA Ao Ratio MM 0.8 MV E Point Septal Separation 0.6 cm DOPPLER AV Peak Velocity 190.7 cm/s LVOT Peak Velocity 148.0 cm/s AV Area Cont Eq vti 2.5 cm squared AV Area Cont Eq pk 2.4 cm squared MV Peak Velocity 104.0 cm/s MV Area PHT 2.6 cm squared Mitral E to A Ratio 1.0 MV E' Velocity 49.0 cm/s Mitral E to MV E' Ratio 8.0 Mitral E to LV E' Lateral Ratio 8.3 Mitral E to LV E' Septal Ratio 7.8 TR Peak Velocity 180.7 cm/s TR Peak Gradient 13.1 mmHg TR Mean Velocity 147.8 cm/s TR Mean Gradient 8.8 mmHg TR Velocity Time Integral 49.3 cm TV Peak E Velocity 57.0 cm/s Right Atrial Pressure 3.0 mmHg Pulmonary Artery Systolic Pressu 16.1 mmHg PV Peak Velocity 105.0 cm/s RV Acceleration Time 0.2 s RV Ejection Time 0.4 s RV AcT/ET 0.5 FINDINGS Left Ventricle Normal left ventricular size, systolic function and wall thickness, with no regional wall motion abnormalities. Grade I/IV diastolic dysfunction (abnormal relaxation filling pattern), normal to mildly elevated filling pressures. Left ventricular ejection fraction is estimated at 60 %. Right Ventricle Normal right ventricular size and systolic function. Normal right ventricular systolic pressure. Right Atrium The right atrium is normal in size. Left Atrium The left atrium is normal in size. Mitral Valve Structurally normal mitral valve without significant stenosis or prolapse. There is no mitral regurgitation. Aortic Valve Structurally normal aortic valve without significant sclerosis or stenosis. There is no aortic regurgitation. Tricuspid Valve Structurally normal tricuspid valve without significant stenosis or regurgitation. Pulmonary artery systolic pressure is normal. Pulmonic Valve Pulmonic valve not well visualized. Pericardium Normal pericardium without effusion. Aorta Normal ascending aorta dimension. IVC The inferior vena cava appears normal. CONCLUSIONS Normal left ventricular size, systolic function and wall thickness, with no regional wall motion abnormalities. Grade I/IV diastolic dysfunction (abnormal relaxation filling pattern), normal to mildly elevated filling pressures. Left ventricular ejection fraction is estimated at 60 %. The study is unchanged from the previous echocardiogram done 12/31/2016 Dr. Reyes Davis MD (Electronically Signed) Final Date: 10 November 2022 18:01 S
== END 2022-11-10 14:00 | disposition home or self-care (01) ==
LOC: RAD 14:03
PROVIDERS: PCP Nurse Practitioner Family; Visit Provider Internal Medicine Cardiovascular Disease
DX: I10 Essential (primary) hypertension (principal); R06.02 Shortness of breath
CPT/HCPCS: 93306; 99213

== ENCOUNTER → 2022-11-18 10:05 | Outpatient (BNVA) | payer MEDICARE, OTHER, MEDICAID, SELFPAY | PROVIDERS: PCP Nurse Practitioner Family; Visit Provider Nurse Practitioner Family | DX: I10 Essential (primary) hypertension (principal); E55.9 Vitamin D deficiency, unspecified; R73.9 Hyperglycemia, unspecified | CPT/HCPCS: 80053; 80061; 82306; 83036; 85025 ==

== ENCOUNTER 2022-11-30 13:10 | Outpatient (CLI) | payer MEDICARE, OTHER, MEDICAID, SELFPAY ==
--- NOTE | 2022-11-30 13:30 | XR_ITS ---
WS: [email or web address] SCREENING DEXA SCAN [employer] CLINICAL INFORMATION: Z78.0 - Asymptomatic menopausal state COMPARISON: None. FINDINGS: The L1-L4 bone mineral density measures 1.008 g/cm2. This corresponds to a T score score of -1.4 and Z score of -0.9. Left femoral neck bone mineral density measures 0.744 g/cm2. This corresponds to a T score of -2.1 an d Z score of -1.5. Right femoral neck bone mineral density measures 0.747 g/cm2. This corresponds to a T score -2.1of an d Z score of -1.5. Mean femoral neck bone mineral density measures 0.745 g/cm2. This corresponds to a T score of -2.1 an d Z score of -1.5. XR/XR DEXA axial skeleton* [id number] IMPRESSION: Osteopenia lumbar spine. Osteopenia femoral necks. Patient's FRAX calculated 10 year probability for major osteoporotic fracture i s 13.7 % and osteoporotic hip fracture is 3.6%.
== END 2022-11-30 13:11 | disposition home or self-care (01) ==
LOC: RAD 13:13
PROVIDERS: PCP Nurse Practitioner Family; Visit Provider Nurse Practitioner Family
DX: Z78.0 Asymptomatic menopausal state (principal); M85.89 Other specified disorders of bone density and structure, multiple sites
CPT/HCPCS: 77080

== ENCOUNTER → 2023-04-09 10:57 | Outpatient (BNVA) | payer MEDICARE, OTHER, MEDICAID, SELFPAY | PROVIDERS: PCP Nurse Practitioner Family; Visit Provider Internal Medicine Cardiovascular Disease | DX: R00.2 Palpitations (principal); I10 Essential (primary) hypertension; F32.A Depression, unspecified; R53.83 Other fatigue; K21.9 Gastro-esophageal reflux disease without esophagitis | CPT/HCPCS: 99214 ==

== ENCOUNTER 2023-06-09 20:00 | Outpatient (CLI) | payer MEDICARE, OTHER, MEDICAID, SELFPAY | END 2023-06-09 20:01 | disposition home or self-care (01) | LOC: SLEEP 06-10 05:20 | PROVIDERS: PCP Nurse Practitioner Family; Visit Provider Internal Medicine Cardiovascular Disease | DX: G47.33 Obstructive sleep apnea (adult) (pediatric) (principal); G47.10 Hypersomnia, unspecified | CPT/HCPCS: 95810 ==

== ENCOUNTER → 2023-06-24 11:18 | Outpatient (BNVA) | payer MEDICARE, OTHER, MEDICAID, SELFPAY | PROVIDERS: PCP Nurse Practitioner Family; Visit Provider Nurse Practitioner Family | DX: I10 Essential (primary) hypertension (principal); E55.9 Vitamin D deficiency, unspecified; G47.33 Obstructive sleep apnea (adult) (pediatric); R19.7 Diarrhea, unspecified; K22.70 Barrett's esophagus without dysplasia | CPT/HCPCS: 80053; 80061; 82306; 84443; 85025 ==

== ENCOUNTER → 2023-07-15 10:00 | Outpatient (BNVA) | payer MEDICARE, OTHER, MEDICAID, SELFPAY | PROVIDERS: PCP Nurse Practitioner Family; Visit Provider Nurse Practitioner Family | DX: R94.4 Abnormal results of kidney function studies (principal) | CPT/HCPCS: 80048 ==

== ENCOUNTER → 2023-08-09 09:16 | Outpatient (BNVA) | payer MEDICARE, OTHER, MEDICAID, SELFPAY | PROVIDERS: PCP Nurse Practitioner Family; Visit Provider Nurse Practitioner Family | DX: N39.0 Urinary tract infection, site not specified (principal); N18.9 Chronic kidney disease, unspecified | CPT/HCPCS: 80048; 81003; 87077; 87086; 87184 ==

== ENCOUNTER 2023-08-18 08:53 | Outpatient (CLI) | payer MEDICARE, OTHER, MEDICAID, SELFPAY ==
--- NOTE | 2023-08-18 09:15 | US_ITS ---
WS: [email or web address] US pelvic complete* [id number] HISTORY: Z85.41 - Personal history of malignant neoplasm of cervix... COMPARISON: None available. Status post hysterectomy. No uterus or midline mass is identified. There is no free fluid. Neither ov gómez is identified. The adnexa are clear. Transvaginal imaging is limited due to difficulty inserting the probe. IMPRESSION: Status post hysterectomy. No midline mass. Neither ovary identified.
== END 2023-08-18 08:54 | disposition home or self-care (01) ==
LOC: RAD 08:54
PROVIDERS: PCP Nurse Practitioner Family; Visit Provider Nurse Practitioner Family
DX: Z85.41 Personal history of malignant neoplasm of cervix uteri (principal); Z90.710 Acquired absence of both cervix and uterus
CPT/HCPCS: 76856

== ENCOUNTER 2023-10-04 13:11 | Outpatient (CLI) | payer MEDICARE, OTHER, MEDICAID, SELFPAY ==
--- NOTE | 2023-10-04 13:18 | MM_ITS ---
WS: [email or web address] BILATERAL 3D TOMOSYNTHESIS DIGITAL SCREENING MAMMOGRAPHY WITH CAD CLINICAL INFORMATION: SCREENING HISTORY: Screening mammogram. No current complaints. COMPARISON: 10/01/2022 TECHNIQUE: Bilateral CC and MLO views. FINDINGS: The breasts are composed of heterogeneous fibroglandular density tissue, which can limit the detectio n of small underlying mass lesions. New asymmetric ovoid density upper quadrant LEFT breast near the 12 o'clock position. Recommend LEFT diagnostic mammography and ultrasound in further evaluation. Incidental punctate and lucent centered calcifications. RIGHT breast is unchanged. IMPRESSION: MM/[place] [id number] BI-RADS: 0-Incomplete: Need additional imaging evaluation FOLLOW UP: Need Additional Imaging Recommend LEFT diagnostic mammography and ultrasound in further evaluation.
== END 2023-10-04 13:12 | disposition home or self-care (01) ==
PROVIDERS: PCP Nurse Practitioner Family; Visit Provider Nurse Practitioner Family
DX: Z12.31 Encounter for screening mammogram for malignant neoplasm of breast (principal); R92.8 Other abnormal and inconclusive findings on diagnostic imaging of breast
CPT/HCPCS: 77063; 77067

== ENCOUNTER 2023-10-28 09:37 | Outpatient (CLI) | payer MEDICARE, OTHER, MEDICAID, SELFPAY ==
--- NOTE | 2023-10-28 09:44 | MM_ITS ---
WS: [email or web address] LEFT 3D TOMOSYNTHESIS DIGITAL MAMMOGRAPHY WITH CAD CLINICAL INFORMATION: R92.8 - Other abnormal and inconclusive findings on diagn... HISTORY: Additional views COMPARISON: 10/04/2023 TECHNIQUE: 3 views of the left breast were obtained. FINDINGS: Scattered fibroglandular densities of the left breast. Previously described small asymmetric density near the 12 o'clock position resolves on the spot compression views today. No other suspicious findin gs. Recommend return to annual screening mammography. No suspicious focal mass, asymmetry, calcifications, or architectural distortion. No evidence of michael gnancy. IMPRESSION: MM/[place] [id number] BI-RADS: 2-Benign FOLLOW UP: 1 Year Follow-up Recommend return to annual screening mammography.
== END 2023-10-28 09:38 | disposition home or self-care (01) ==
LOC: RAD 09:38
PROVIDERS: PCP Nurse Practitioner Family; Visit Provider Nurse Practitioner Family
DX: R92.8 Other abnormal and inconclusive findings on diagnostic imaging of breast (principal)
CPT/HCPCS: 77061; 99214; G0279

== ENCOUNTER → 2024-04-17 14:34 | Outpatient (BNVA) | payer MEDICARE, OTHER, MEDICAID, SELFPAY | PROVIDERS: PCP Nurse Practitioner Family; Visit Provider Internal Medicine | DX: R00.2 Palpitations (principal); I10 Essential (primary) hypertension; F32.A Depression, unspecified; R53.83 Other fatigue; K21.9 Gastro-esophageal reflux disease without esophagitis | CPT/HCPCS: 99213 ==

== ENCOUNTER → 2024-06-13 12:35 | Outpatient (BNVA) | payer MEDICARE, OTHER, MEDICAID, SELFPAY | PROVIDERS: PCP Nurse Practitioner Family; Visit Provider Nurse Practitioner Family | DX: I10 Essential (primary) hypertension (principal); E55.9 Vitamin D deficiency, unspecified | CPT/HCPCS: 80053; 80061; 82306; 82607; 83735; 84443; 85025 ==

== ENCOUNTER 2024-06-26 14:13 | Outpatient (CLI) | payer MEDICARE, OTHER, MEDICAID, SELFPAY ==
--- NOTE | 2024-06-26 14:30 | CTR_ITS ---
PROCEDURE INFORMATION: Exam: CT Abdomen And Pelvis With Contrast Exam date and time: 06/26/2024 3:06 PM Age: 69 years old Clinical indication: Prior surgery; Surgery date: 6+ months; Surgery type: Hyst, appy, port; Patient HX: Diarrhea x 10 yrs intermittent, being referred to gastrointerologist. HX of cervical cancer; Additional info: K52.9 - noninfective gastroenteritis and colitis, unspeci. . . TECHNIQUE: Imaging protocol: Computed tomography of the abdomen and pelvis with contrast. Radiation optimization: All CT scans at this facility use at least one of these dose optimization techniques: automated exposure control; mA and/or kV adjustment per patient size (includes targeted exams where dose is matched to clinical indication); or iterative reconstruction. Contrast material: OMNI 350; Contrast volume: 100 ml; Contrast route: INTRAVENOUS (IV); COMPARISON: CT abdomen pelvis wo con [id number] 08/16/2019 8:57 AM RADIATION DOSE METRICS: Total DLP (mGy-cm): 997.7 FINDINGS: Liver: Normal. No mass. Gallbladder and biliary ducts: Normal. No calcified stones. No ductal dilation. Pancreas: Normal. No ductal dilation. Spleen: Normal. No splenomegaly. Adrenal glands: Normal. No mass. Kidneys and ureters: Normal. No hydronephrosis. Stomach and bowel: Unremarkable. No obstruction. No mucosal thickening. Appendix: No evidence of appendicitis. Intraperitoneal space: Unremarkable. No free air. No significant fluid collection. Vasculature: Unremarkable. No abdominal aortic aneurysm. Lymph nodes: Unremarkable. No enlarged lymph nodes. Urinary bladder: Unremarkable as visualized. Reproductive: Unremarkable as visualized. Bones/joints: Unremarkable. No acute fracture. Soft tissues: Unremarkable. CT/CT abdomen pelvis w con* [id number] IMPRESSION: No acute findings.
[2024-06-26] MEDS: iohexol 350 mg/mL 500 mL Btl (per mL) IV (15:13)
[2024-06-26] MEDS: iohexol 350 mg/mL 500 mL Btl (per mL) PO (15:14)
== END 2024-06-26 14:14 | disposition home or self-care (01) ==
LOC: RAD 14:15
PROVIDERS: PCP Nurse Practitioner Family; Visit Provider Nurse Practitioner Family
DX: K52.9 Noninfective gastroenteritis and colitis, unspecified (principal); Z90.49 Acquired absence of other specified parts of digestive tract; Z90.710 Acquired absence of both cervix and uterus
CPT/HCPCS: 74177

== ENCOUNTER → 2024-10-03 11:55 | Outpatient (BNVA) | payer MEDICARE, OTHER, MEDICAID, SELFPAY | PROVIDERS: PCP Nurse Practitioner Family; Visit Provider Nurse Practitioner Family | DX: R30.0 Dysuria (principal) | CPT/HCPCS: 81000; 81003; 87086 ==

== ENCOUNTER 2024-10-30 11:18 | Outpatient (CLI) | payer MEDICARE, OTHER, MEDICAID, SELFPAY ==
--- NOTE | 2024-10-30 11:26 | MM_ITS ---
WS: [email or web address] BILATERAL SCREENING DIGITAL TOMOSYNTHESIS MAMMOGRAM WITH CAD HISTORY: SCREENING COMPARISON: 10/28/2023, 10/04/2023, 07/25/2019 Bilateral CC and MLO views with tomosynthesis and synthetic mammography submitted. Computer aided detection analyzed. Breast composition: There are scattered areas of fibroglandular density. No suspicious masses, microcalcifications or architectural distortion. Benign calcifications in each breast. Stable partially obscured asymmetries within each breast. MM/MM scr BI tomosynthesis [id number] IMPRESSION: BI-RADS: 2 - Benign. FOLLOW UP: 1 Year Follow-up
== END 2024-10-30 11:19 | disposition home or self-care (01) ==
PROVIDERS: PCP Nurse Practitioner Family; Visit Provider Nurse Practitioner Family
DX: Z12.31 Encounter for screening mammogram for malignant neoplasm of breast (principal); R92.323 Mammographic fibroglandular density, bilateral breasts; R92.1 Mammographic calcification found on diagnostic imaging of breast; N64.89 Other specified disorders of breast
CPT/HCPCS: 77063; 77067

== ENCOUNTER → 2025-02-27 10:59 | Outpatient (BNVA) | payer MEDICARE, OTHER, MEDICAID, SELFPAY | PROVIDERS: PCP Nurse Practitioner Family; Visit Provider Nurse Practitioner Family | DX: I10 Essential (primary) hypertension (principal); F32.A Depression, unspecified; E55.9 Vitamin D deficiency, unspecified | CPT/HCPCS: 80053; 80061; 82306; 82607; 84443; 85025 ==

== ENCOUNTER 2025-03-06 12:57 | Outpatient (CLI) | payer MEDICARE, OTHER, SELFPAY ==
--- NOTE | 2025-03-06 13:15 | US_ITS ---
WS: [email or web address] US pelvic complete* [id number] HISTORY: Z85.41 - Personal history of malignant neoplasm of cervix..., Prior hysterectomy. COMPARISON: Prior ultrasound 08/18/[address] 06/26/2024 Status post hysterectomy. Uterus is not identified. Neither ovary is identified. Attempted transvaginal imaging demonstrates a fluid collection in the central pelvis of uncertain etiology. This may be the urinary bladder. There is increased density within the bladder that does not have increased vascularity. This may be some debris or neoplasm centrally. This needs to be further ev aluated. US/US pelvic complete* [id number] IMPRESSION: 1. Status post hysterectomy. Uterus is not identified. Neither ovary identifie d. 2. There is a fluid collection centrally with internal debris seen only on att empted transvaginal imaging. This may be the urinary bladder with debris versus a loop of colon. Further evaluation should be attempted. Recommend follow-up C T pelvis with IV contrast.
== END 2025-03-06 12:58 | disposition home or self-care (01) ==
LOC: RAD 12:59
PROVIDERS: PCP Nurse Practitioner Family; Visit Provider Nurse Practitioner Family
DX: Z85.41 Personal history of malignant neoplasm of cervix uteri (principal); Z90.710 Acquired absence of both cervix and uterus; R93.89 Abnormal findings on diagnostic imaging of other specified body structures; N32.89 Other specified disorders of bladder
CPT/HCPCS: 76856

== ENCOUNTER 2025-03-22 08:45 | Outpatient (CLI) | payer MEDICARE, OTHER, SELFPAY ==
--- NOTE | 2025-03-22 09:00 | CT_ITS ---
WS: [email or web address] CT PELVIS WITH CONTRAST HISTORY: Z85.41 - Personal history of malignant neoplasm of cervix..., Follow-up fluid collection noted by recent ultrasound of the pelvis on 03/06/2025. TECHNIQUE: Contiguous imaging is performed of the pelvis with contrast. Delayed imaging also obtained. Coronal and sagittal reformats are reviewed. All CT scans at [facility] use at least one of these dose optimization techniques: automated exposure control; mA and/or kV adjustment per patient size (includes targeted exams where dose is matched to clinical indication); or iterative reconstruction. DLP: 1347.87 mGy.cm COMPARISON: 06/26/2024 and pelvic ultrasound 03/06/2025 Status post hysterectomy. Patient did provided history of a partial hysterectomy. Prominent appearance of the midline structures may be an atrophic uterus or postsurgical changes from partial hysterectomy. These findings have been present for multiple prior years without progression. There is a very small amount of free fluid in the pelvis of uncertain etiology. Urinary bladder is well distended. No diverticulum. Ventral abdominal wall sutures with dystrophic calcifications from prior surgery. No fluid collections along the surgical site. No adenopathy. No dilated GI loop in the pelvis. CT/CT pelvis w con* [id number] IMPRESSION: 1. No fluid collection or dilated loop of GI tract in the pelvis. 2. Patient provided history of a prior hysterectomy. There is thickening and s oft tissue prominence at the hysterectomy surgical site. If the uterus has not been removed the changes in the midline may be a small atrophic uterus. Neverth eless no interval change on multiple prior examinations. 3. Small amount of free fluid in the pelvis of uncertain etiology. Neither ova ry identified.
[2025-03-22] MEDS: iohexol 350 mg/mL 500 mL Btl (per mL) IV (09:14)
== END 2025-03-22 08:46 | disposition home or self-care (01) ==
LOC: RAD 08:47
PROVIDERS: PCP Nurse Practitioner Family; Visit Provider Nurse Practitioner Family
DX: Z08 Encounter for follow-up examination after completed treatment for malignant neoplasm (principal); Z85.41 Personal history of malignant neoplasm of cervix uteri; Z90.710 Acquired absence of both cervix and uterus
CPT/HCPCS: 72193

== ENCOUNTER → 2025-04-16 13:47 | Outpatient (BNVA) | payer MEDICARE, OTHER, SELFPAY | PROVIDERS: PCP Nurse Practitioner Family; Visit Provider Internal Medicine | DX: R00.2 Palpitations (principal); I10 Essential (primary) hypertension; F32.A Depression, unspecified; R53.83 Other fatigue; K21.9 Gastro-esophageal reflux disease without esophagitis; Z79.82 Long term (current) use of aspirin | CPT/HCPCS: 99213 ==

== ENCOUNTER → 2025-07-02 14:25 | Outpatient (BNVA) | payer MEDICARE, OTHER, SELFPAY | PROVIDERS: PCP Nurse Practitioner Family; Visit Provider Nurse Practitioner Family | DX: R30.0 Dysuria (principal) | CPT/HCPCS: 81000 ==

== ENCOUNTER → 2025-07-10 14:56 | Outpatient (BNVA) | payer MEDICARE, OTHER, SELFPAY | PROVIDERS: PCP Nurse Practitioner Family; Visit Provider Nurse Practitioner Family | DX: R39.89 Other symptoms and signs involving the genitourinary system (principal) | CPT/HCPCS: 81003; 87086 ==